=== PATIENT | male | born 1980 | race Caucasian/White ===

== ENCOUNTER 2017-12-23 05:41 | Day surgery (SDC) | payer OTHER ==
[2017-12-23] MEDS ORDERED: LIDOCAINE 4% SOLUTION 50 ML BTL (07:28)
[2017-12-23] MEDS ORDERED: MIDAZOLAM 1 MG/ML 2 ML INJ ×2 (08:24)
[2017-12-23] MEDS ORDERED: FENTAnyl 50 MCG/ML VIAL (08:24)
== END 2017-12-23 11:50 | disposition home or self-care (01) ==
LOC: GIL 05:41
DX: K29.70 Gastritis, unspecified, without bleeding (principal)
CPT/HCPCS: 43239; 88305; 88312